=== PATIENT | female | born 2000 | race Two or more races ===

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

== ENCOUNTER 2023-01-29 00:55 | Day surgery (SDC) | payer OTHER ==
[~2023-01-29 00:55] MED LIST: BUPIVACAINE HCL/PF 0.5% (5MG/ML) 10 ML VIAL IJ ONE; ceFAZolin SODIUM 1 GM VIAL IVPB ONE
[2023-01-29] MEDS ORDERED: MAG HYDROX/AL HYDROX/SIMETH 30 ML UNIT-DOSE CUP PO ONE ×2 (02:35→02:50)
[2023-01-29] MEDS ORDERED: FAMOTIDINE 20 MG TABLET PO ONE (02:35)
[2023-01-29] MEDS ORDERED: MAG HYDROX/AL HYDROX/SIMETH 30 ML UNIT-DOSE CUP ONE (02:49)
[2023-01-29] MEDS ORDERED: FAMOTIDINE 20 MG TABLET ONE (02:49)
[2023-01-29] MEDS ORDERED: FAMOTIDINE 20 MG/50 ML IVPB 20 MG/50 ML MG IVPB ONE ×2 (02:50→03:00)
[2023-01-29 03:18] LABS: BASO % 0.9 % (0-2.0); EOS % 0.7 % (0-4.5); HEMOGLOBIN 12.8 GM/dL (10.7-15.3); LYMPH % 16.5 % (8-40); MCH 28.2 pg (25.7-33.7); MCHC 32.9 g/dl (32.0-36.0); MEAN CELL VOLUME 85.8 fl (80-96); MEAN PLT VOLUME 10.9 fl (7.5-11.1); MONO % 5.5 % (3.8-10.2); NEUT % 76.4 % (42.8-82.8); PLATELET COUNT 253 10^3/uL (134-434); RBC 4.55 M/mm3 (3.60-5.2); RDW 15.1 % (11.6-15.6); WHITE BLOOD COUNT 5.5 K/mm3 (4.0-10.0)
[2023-01-29 03:22] LABS: EPI CELLS >36 /uL (0-25.1); HYALINE CASTS 3 /uL (0-3.1); PH,URINE >= 9.0 (5.0-8.0); URINE APPEARANCE TURBID; URINE BACTERIA 396 /uL (0-1359); URINE BILIRUBIN 1+ (NEGATIVE); URINE COLOR DK YELLOW; URINE GLUCOSE (UA) NEGATIVE (NEGATIVE); URINE KETONE 4+ (NEGATIVE); URINE LEUK ESTERASE TRACE (NEGATIVE); URINE NITRITE NEGATIVE (NEGATIVE); URINE PROTEIN 1+ (NEGATIVE); URINE RBC 5 /uL (0-23.9); URINE WBC 20 /uL (0-25.8)
[2023-01-29 03:29] LABS: CALCIUM 9.3 mg/dL (8.5-10.1)
[2023-01-29 03:31] LABS: ALBUMIN 3.8 g/dl (3.4-5.0); BLOOD UREA NITROGEN 8.7 mg/dL (7-18)
[2023-01-29 03:33] LABS: CREATININE 0.8 mg/dL (0.55-1.3)
[2023-01-29 03:34] LABS: BILIRUBIN,TOTAL 1.3 mg/dL (0.2-1); TOT PROT 7.8 g/dl (6.4-8.2)
[2023-01-29] MEDS ORDERED: SODIUM CHLORIDE 1,000 ML IV STA (06:21)
[2023-01-29] MEDS ORDERED: LACTATED RINGERS SOLUTION 1000 ML INFUS.BAG IV ONE (06:26)
[2023-01-29] MEDS ORDERED: SODIUM CHLORIDE 1,000 ML IV SCH (10:30)
[2023-01-29] MEDS ORDERED: ACETAMINOPHEN 1000 MG/100 ML BAG IVPB PRN (10:55)
[2023-01-29 11:02] VITALS: BMI 26.5
[2023-01-29] MEDS ORDERED: BUPIVACAINE HCL/PF 0.5% (5MG/ML) 10 ML VIAL ONE (13:42)
[2023-01-29] MEDS ORDERED: MIDAZOLAM HCL 2 MG/2 ML SINGLE DOSE VIAL ONE (13:54)
[2023-01-29] MEDS ORDERED: ROCURONIUM BROMIDE 50 MG/5 ML SYRINGE ONE (14:23)
[2023-01-29] MEDS ORDERED: BUPIVACAINE HCL/PF 0.5% (5MG/ML) 10 ML VIAL IJ ONE ×2 (14:29→15:21)
[2023-01-29] MEDS ORDERED: SUCCINYLCHOLINE CHLORIDE 200 MG/10 ML SYRINGE ONE (14:34)
[2023-01-29] MEDS ORDERED: PROPOFOL 20 ML ONE (14:35)
[2023-01-29] MEDS ORDERED: ACETAMINOPHEN 1000 MG/100 ML BAG IVPB SCH (15:45)
[2023-01-29] MEDS ORDERED: oxyCODONE HCL 5 MG TABLET PO PRN ×2 (15:46→16:09)
[2023-01-29] MEDS ORDERED: ACETAMINOPHEN 1000 MG/100 ML BAG IVPB ONE ×2 (15:46→16:09)
[2023-01-29] MEDS ORDERED: ALBUTEROL SO4 HFA INHALER IH SCH (18:00)
[2023-01-29] MEDS ORDERED: ALBUTEROL SO4 HFA INHALER IH PRN (18:00)
[2023-01-29] MEDS ORDERED: LACTATED RINGERS SOLUTION 1,000 ML/1,000 ML INFUS.BAG IV SCH (18:45)
[2023-01-29 21:19] VITALS: RESP 20
[2023-01-29] MEDS: ACETAMINOPHEN 1000 MG/100 ML BAG IVPB SCH (21:25)
[2023-01-29] MEDS ORDERED: KETOROLAC TROMETHAMINE 15 MG/ML VIAL IVPUSH PRN (21:30)
[2023-01-29] MEDS ORDERED: NORETHINDRONE E ESTRADIOL IRON PO SCH ×2 (22:00)
[2023-01-29] MEDS: KETOROLAC TROMETHAMINE 15 MG/ML VIAL IVPUSH PRN (23:00)
[2023-01-30] MEDS: ACETAMINOPHEN 1000 MG/100 ML BAG IVPB SCH ×2 (02:47→10:02)
[2023-01-30] MEDS: KETOROLAC TROMETHAMINE 15 MG/ML VIAL IVPUSH PRN (07:55)
[2023-01-30] MEDS ORDERED: ONDANSETRON 4 MG/2 ML VIAL IVPUSH ONE (08:30)
[2023-01-30] MEDS ORDERED: FLUoxetine HCL 20 MG CAPSULE PO SCH (10:00)
[2023-01-30] MEDS ORDERED: FLUOXETINE HCL 20 MG PO SCH (10:00)
[2023-01-30 10:15] LABS: POTASSIUM 3.8 mmol/L (3.5-5.1)
[2023-01-30 10:19] LABS: BLOOD UREA NITROGEN 4.5 mg/dL (7-18); CALCIUM 8.3 mg/dL (8.5-10.1); MAGNESIUM 1.9 mg/dL (1.8-2.4)
[2023-01-30 10:21] LABS: HEMATOCRIT 31.9 % (32.4-45.2); HEMOGLOBIN 10.6 GM/dL (10.7-15.3); MCH 28.7 pg (25.7-33.7); MCHC 33.4 g/dl (32.0-36.0); MEAN CELL VOLUME 86.1 fl (80-96); MEAN PLT VOLUME 11.3 fl (7.5-11.1); PLATELET COUNT 182 10^3/uL (134-434); RBC 3.71 M/mm3 (3.60-5.2); RDW 14.5 % (11.6-15.6)
[2023-01-30 10:22] LABS: BILIRUBIN,DIRECT 0.2 mg/dL (0.0-0.2); CREATININE 0.6 mg/dL (0.55-1.3)
[2023-01-30 10:24] LABS: BILIRUBIN,TOTAL 0.5 mg/dL (0.2-1); TOT PROT 5.9 g/dl (6.4-8.2)
[2023-01-30 10:28] LABS: ALBUMIN 2.8 g/dl (3.4-5.0)
[2023-01-30 11:49] VITALS: BP 126/76; PULSE 94; TEMP 97.8
== END 2023-01-30 12:51 | disposition home or self-care (01) ==
LOC: JER 00:55 → JERBED 06:15 → UNDOADMIN 06:15 → SUATTDRO 10:55 → JASUSAT 10:55 → J8W 18:11 → JASUSAT 01-30 12:51
PROVIDERS: ATTEND Nurse Practitioner Family
PROC: 0FT44ZZ Resection of Gallbladder, Percutaneous Endoscopic Approach (ICD-10-PCS; principal; 2023-01-29 16:00)
DX: K80.00 Calculus of gallbladder with acute cholecystitis without obstruction (principal)
CPT/HCPCS: 0241U-QW; 36415; 74177-TC; 76705-TC; 80053; 81003; 82248; 83690; 83735; 84100; 84703; 85025; 85027; 87086; 87186; 88304-TC; 93005; 93010; 94760; 99285-25; Q9967

== ENCOUNTER 2023-02-01 10:14 | Emergency (ER) | payer OTHER ==
[2023-02-01 10:47] VITALS: BMI 27.4
[2023-02-01] MEDS ORDERED: SODIUM CHLORIDE 0.9% 500 ML INFUS.BAG IV ONE (10:55)
[2023-02-01] MEDS ORDERED: ACETAMINOPHEN 1000 MG/100 ML BAG IVPB ONE (10:55)
[2023-02-01] MEDS ORDERED: ONDANSETRON 4 MG/2 ML VIAL IVPUSH ONE (10:55)
[2023-02-01] MEDS ORDERED: ACETAMINOPHEN INJECTION 100 ML IVPB ONE (11:04)
[2023-02-01] MEDS ORDERED: ONDANSETRON 4 MG/2 ML VIAL ONE (11:04)
[2023-02-01 11:49] LABS: BASO % 0.7 % (0-2.0); EOS % 2.4 % (0-4.5); HEMATOCRIT 34.1 % (32.4-45.2); HEMOGLOBIN 11.1 GM/dL (10.7-15.3); LYMPH % 18.2 % (8-40); MCH 28.1 pg (25.7-33.7); MCHC 32.6 g/dl (32.0-36.0); MEAN CELL VOLUME 86.4 fl (80-96); MEAN PLT VOLUME 10.1 fl (7.5-11.1); MONO % 6.7 % (3.8-10.2); PLATELET COUNT 195 10^3/uL (134-434); RBC 3.94 M/mm3 (3.60-5.2); RDW 14.9 % (11.6-15.6); WHITE BLOOD COUNT 7.2 K/mm3 (4.0-10.0)
[2023-02-01 11:57] LABS: INR 1.1 (0.83-1.09); PROTHROMBIN TIME (PATIENT) 12.8 SEC (9.7-13.0)
[2023-02-01 12:00] LABS: ACTIVATED PTT 28.7 SECONDS (25.2-36.5)
[2023-02-01 12:06] LABS: CALCIUM 8.9 mg/dL (8.5-10.1)
[2023-02-01 12:07] LABS: ALBUMIN 3.3 g/dl (3.4-5.0); BLOOD UREA NITROGEN 8.3 mg/dL (7-18)
[2023-02-01 12:10] LABS: CREATININE 0.6 mg/dL (0.55-1.3)
[2023-02-01 12:11] LABS: BILIRUBIN,TOTAL 0.4 mg/dL (0.2-1); TOT PROT 6.9 g/dl (6.4-8.2)
[2023-02-01 13:05] LABS: URINE APPEARANCE CLEAR; URINE BILIRUBIN NEGATIVE (NEGATIVE); URINE COLOR YELLOW; URINE GLUCOSE (UA) NEGATIVE (NEGATIVE); URINE KETONE 4+ (NEGATIVE); URINE LEUK ESTERASE 1+ (NEGATIVE); URINE NITRITE NEGATIVE (NEGATIVE); URINE PROTEIN NEGATIVE (NEGATIVE); URINE UROBILINOGEN 0.2 mg/dL (0.2-1.0)
[2023-02-01 14:10] LABS: EPI CELLS 45.7 /uL (0-25.1); URINE RBC 1703.9 /uL (0-23.9); URINE WBC 42.5 /uL (0-25.8)
[2023-02-01 15:03] VITALS: TEMP 98.8
[2023-02-01 16:04] VITALS: BP 113/62; PULSE 89; RESP 16
== END 2023-02-01 16:07 | disposition home or self-care (01) ==
LOC: JER 10:14
PROC: 3E0333Z Introduction of Anti-inflammatory into Peripheral Vein, Percutaneous Approach (ICD-10-PCS; principal; 2023-02-01)
PROC: 3E033GC Introduction of Other Therapeutic Substance into Peripheral Vein, Percutaneous Approach (ICD-10-PCS; 2023-02-01)
DX: R10.11 Right upper quadrant pain (principal); R06.02 Shortness of breath; R11.0 Nausea
CPT/HCPCS: 36415; 71275-TC; 74177-TC; 76705-TC; 80053; 81003; 84703; 85025; 85379; 85610; 85730; 87086; 93005; 93010; 99285-25; C9803-CS; Q9967; U0003; U0005

== ENCOUNTER 2023-09-14 12:56 | Emergency (ER) | payer OTHER ==
[2023-09-14 13:02] VITALS: BP 112/53; PULSE 94; RESP 18; TEMP 97.8; BMI 27.2
[2023-09-14] MEDS ORDERED: ALBUTEROL SO4 2.5/IPRATROPIUM 0.5 INH SOL 3 ML VIAL.NEB. NEB ONE ×2 (13:24→13:30)
== END 2023-09-14 15:40 | disposition home or self-care (01) ==
LOC: JER 12:56 → JERFT 12:56
PROC: 3E0F7GC Introduction of Other Therapeutic Substance into Respiratory Tract, Via Natural or Artificial Opening (ICD-10-PCS; principal; 2023-09-14)
DX: J45.21 Mild intermittent asthma with (acute) exacerbation (principal)
CPT/HCPCS: 71046-TC-FY; 93005; 93010; 99284-25